=== PATIENT | female | born 1980 ===

== ENCOUNTER 2016-12-10 13:49 | Emergency (ER) | payer SELFPAY ==
--- NOTE | 2016-12-15 08:48 | ER ---
ADMIT: 12/10/2016 RM/LOC: ER [facility] MR#: [id number] [place], [place] [id number] JOCE JAY [address] [place] [address], [place] [address] Emergency Room Report SEX: F AGE: 36 : 1980 DATE: 12/10/2016 TIME: 1349 hours. Please refer to my T-sheet for complete H and P. Briefly, the patient is a 36-year-old, who comes in with rash on her arms. 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 She does not know what caused it, but it itches. It is on her arms. No shortness of breath. No runny nose. No recent fever. No new medications. PHYSICAL EXAMINATION: VITAL SIGNS: Stable. HEENT: Grossly normal. LUNGS: Clear. SKIN: Rash is pretty much isolated from the elbows down. It is raised, erythematous. EMERGENCY DEPARTMENT COURSE: I gave her dose of prednisone and she is ready for discharge. ASSESSMENT: Rash on her arms, etiology is uncertain. I supposed it could be from the chemical that she was exposed to, possibility it could even be bedbugs. PLAN: Wash her clothes very well. Wear long sleeves at work. Return if worse. Benadryl [id number], prednisone 20 a day for 5 days. Erasto Falk MD/ jennifer JOB #: [id number] CC: Erasto Falk MD, Attending Physician Stephanie Santos MD, Family Physician
== END 2016-12-10 14:20 | disposition home or self-care (01) ==
LOC: ER 13:49
DX: R21 Rash and other nonspecific skin eruption (principal); F17.200 Nicotine dependence, unspecified, uncomplicated; Z90.89 Acquired absence of other organs